=== PATIENT | female | born 1955 | race Caucasian/White ===

== ENCOUNTER 2019-04-30 07:38 | Day surgery (SDC) | payer MEDICAID ==
[~2019-04-30] VITALS: Ht 172.7 cm; Wt 100.7 kg
[~2019-04-30 07:38] MED LIST: ALBUTEROL SULF8.5 GM INH; BAYER CHEWABLE81 MG PO; BUMEX2 MG PO; FLUTICASONE PRO16 GM NASAL; HYDROCODON-ACE1 EA10 PO; ISOSORBIDE MONO60 M1 PO; K-DUR20 MEQ PO; LIPITOR80 MG PO; LISINOPRIL40 MG PO; NITROQUICK0.4 MG SL; NORVASC5 MG PO; PAXIL20 MG PO; PROTONIX40 MG PO; PROVIGIL200 MG PO; ZANAFLEX4 MG PO
[2019-04-30 07:45] LABS: HEMATOCRIT 37.9 % (36.0-48.0); HEMOGLOBIN 12.6 g/dL (12-16); MCH 33.2 pg (26.0-34.0); MCHC 33.2 g/dL (31.0-37.0); MEAN PLATELET VOLUME 9.2 fL (7.4-10.4); RBC 3.79 10x6/uL (4.00-5.40); RDW 13.8 % (11.5-14.5); WBC 6.5 10x3/uL (4.8-10.8)
[2019-04-30 07:59] LABS: ANION GAP 6.3 mmol/L (8-16); CALCIUM 9.4 mg/dL (8.5-10.1); CARBON DIOXIDE 35.5 mmol/L (21.0-32.0); POTASSIUM - SERUM 3.8 mmol/L (3.5-5.1)
[2019-04-30 08:23] VITALS: BP 113/54; Ht 172.7 cm; Wt 100.7 kg
--- NOTE | 2019-04-30 13:39 | NUR ---
1338 FL DIET SERVED. PILLOW SUPPLIED FOR COMFORT.
--- NOTE | 2019-05-09 14:17 | OP ---
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 PROCEDURE: 1. Incisional anal biopsies with anal evaluation under anesthesia. 2. Ablation of condylomata with the argon plasma dialysis registered nurse. SURGEON: Schuyler Lee MD BASS SINGER: None. BLOOD LOSS: Minimal. ANESTHESIA: General. The risks, possible complications, and alternatives to the procedure were explained to the patient. She elects to proceed. The discussion specifically included, but was not limited to, bleeding requiring emergency reoperation, infection, as well as possible need for additional anal procedure or procedures. OPERATIVE COURSE: The patient was conveyed to the operating room electively on 04/30/2019. General anesthesia was induced by the anesthesia staff. The patient was placed in the lithotomy position. The buttocks and anus were sterilely prepped and draped. U-shaped anal retractors were placed within the anus. I examined the anus. I noted some verrucous growths. These were removed utilizing an ENT biopsy forceps. Bleeding sites were coagulated with the argon plasma dialysis registered nurse. During this entire procedure, micro filtered suction was utilized. There were some other areas that I thought were little suspicious and these condylomata were ablated with the argon plasma dialysis registered nurse utilizing the right colon setting in the forced mode. Gelfoam was applied within the anus and lower rectum. A combination of Marcaine and steroid preparation were used to infiltrate the perianal tissues. Anesthetic ointment was applied to the external hemorrhoids. The patient was then extubated and conveyed to post-anesthesia care unit where she was in stable condition. She will be dismissed home on Valium, a narcotic analgesic as well as Colace. I will see her in the office in followup. TRANSINT:[id number] Voice Confirmation ID: [id number] DOCUMENT ID: [id number] OPERATIVE REPORT [id number] ES ESTRADA SCHUYLER LEE MD at 1417 CC: ARLIN BELLA MD and ROSARIO TATE [id number] DICTATION DATE: 05/08/192023 WRAPPER SIZER: 05/09/19 0301 [facility] [place] 04/30/19 [id number] [place] [address]
== END 2019-04-30 14:30 | disposition home or self-care (01) ==
LOC: D.OPS 07:38 → D.PAN 09:30 → D.OPS 10:30 → D.PAN 10:30 → D.OPS 14:30
PROVIDERS: Anesthesiology; ATTEND Surgery
DX: A63.0 Anogenital (venereal) warts (principal); I50.9 Heart failure, unspecified; I25.2 Old myocardial infarction; K21.9 Gastro-esophageal reflux disease without esophagitis; K59.09 Other constipation; R14.0 Abdominal distension (gaseous); R10.31 Right lower quadrant pain; R10.32 Left lower quadrant pain; R10.13 Epigastric pain; I25.10 Atherosclerotic heart disease of native coronary artery without angina pectoris; Z86.010 Personal history of colon polyps